=== PATIENT | male | born 1995 | race Caucasian/White ===

== ENCOUNTER 2016-10-27 21:30 | Emergency (ER) | payer OTHER ==
[~2016-10-27] VITALS: Ht 188 cm; Wt 117.9 kg
[2016-10-27 21:43] VITALS: TEMP 36.7; Ht 188 cm; Wt 117.9 kg
--- NOTE | 2016-10-27 22:08 | EMERGENCY ROOM VISIT NOTE ---
ED Visit Note First contact with patient: 21:49 CHIEF COMPLAINT: Numbness and tingling in his right hand HISTORY OF PRESENT ILLNESS: This 20-year-old male who is homeless presents the ER with chief complaint of numbness and tingling in his right hand mainly his fourth and fifth fingers over the past several days. The patient denies any pain in the fingers or any trauma to the area. The patient states sometimes he gets a shock from his hand up to his elbow. The patient denies any neck pain. The patient denies any repetitive use with his right hand. The patient is disabled and does not work. He states he has been staying in the [place]. REVIEW OF SYSTEMS: 6 system review was performed and was negative unless stated otherwise in history of present illness. PMH: The patient is healthy; ADHD, depression SOCIAL HISTORY: Patient is homeless PHYSICAL EXAM: Vital Signs: Were reviewed Reviewed Nurse's notes. GEN.: 20-year -old male appears in no acute distress. MENTAL Status: Alert and oriented 3. The patient's thought processes random. CERVICAL SPINE: No gross bony deformity noted. Nontender to palpation. Full range of motion of the cervical spine without pain or worsening of right hand symptoms. RIGHT HAND/WRIST: No gross bony deformity noted. No erythema or edema noted. The patient is unable to completely extend his fourth and fifth fingers on his own. If you straighten them they will stay in that position. Negative Phalen's negative Tinel's, negative Nicolle's EMERGENCY DEPARTMENT COURSE: The patient was evaluated. I offered to the patient to have the correctional case manager see if they could find him a place to stay. He declined. I discussed with the patient liked that he needs to see his primary care physician at [facility] for further evaluation and possibly EMG. The patient verbalized understanding. The patient was discharged home in stable condition DIAGNOSIS: Numbness and tingling right hand DISCHARGE INSTRUCTIONS & TREATMENT: Avoid popping your elbows on hard surfaces. Refrain from repetitive motion with your right hand until evaluated by your family physician. Call your family physician on Sunday for follow-up appointment and possible referral for EMG. Vital Signs Date Time Temp Pulse Resp B/P (MAP) Pulse Ox O2 Delivery O2 Flow Rate FiO2 10/27/16 21:43 36.7 103 18 142/89 97 Room Air Departure Information Referrals No Doctor, Assigned (PCP) Patient Instructions My [facility]
[2016-10-27 22:16] VITALS: BP 144/94; PULSE 105; O2SAT 99
== END 2016-10-27 22:14 | disposition home or self-care (01) ==
LOC: C.EDB 21:31 → C.EDD 22:14
DX: R20.0 Anesthesia of skin (principal); R20.2 Paresthesia of skin; F90.9 Attention-deficit hyperactivity disorder, unspecified type; F32.9 Major depressive disorder, single episode, unspecified; Z59.0 Homelessness

== ENCOUNTER 2017-03-18 08:17 | Emergency (ER) | payer OTHER ==
[~2017-03-18] VITALS: Ht 185.4 cm; Wt 118.0 kg
[2017-03-18] MEDS ORDERED: ONDANSETRON INJ 2 MG/ML 2 ML VIAL IV STA (08:26)
[2017-03-18] MEDS ORDERED: SODIUM CHLORIDE 0.9% 500ML 500 ML IV STA (08:26)
[2017-03-18 08:49] VITALS: TEMP 37.1; Ht 185.4 cm; Wt 118.0 kg
[2017-03-18 09:18] LABS: BASO % 0.2 %; BASO ABS # 0.03 K/uL (0-0.2); EOS % 0.5 %; EOS ABS # 0.08 K/uL (0-0.5); HEMATOCRIT 51.2 % (42-52); HEMOGLOBIN 18.2 g/dL (14.0-18.0); IG# 0.04 K/uL (0.00-0.02); LYMPH % 6.2 %; LYMPH ABS # 0.96 K/uL (1.2-3.4); MEAN CELL VOLUME 85.5 fL (80-100); MEAN CORPUSCULAR HEMOGLOBIN 30.4 pg (25-34); MEAN CORPUSCULAR HGB CONC 35.5 g/dl (32-36); MEAN PLATELET VOLUME 10.5 fL (7.4-10.4); MONO % 8.6 %; MONO ABS # 1.33 K/uL (0.11-0.59); NEUT % 84.2 %; NEUT ABS # 13.08 K/uL (1.4-6.5); PLATELET COUNT 205 K/uL (130-400); RED CELL DISTRIBUTION WIDTH CV 12.9 % (11.5-14.5); WHITE BLOOD COUNT 15.52 K/uL (4.8-10.8)
[2017-03-18 09:45] LABS: ALBUMIN 3.9 gm/dl (3.4-5.0); CREATININE 1.01 mg/dl (0.60-1.40)
[2017-03-18 09:47] LABS: TOTAL PROTEIN 7.6 gm/dl (6.4-8.2)
[2017-03-18] MEDS ORDERED: ONDA4TAB10 SL (10:24)
--- NOTE | 2017-03-18 10:25 | EMERGENCY ROOM VISIT NOTE ---
History Report prepared by Christ: Mat Mendez Under the Supervision of: Dr. Lucas Canas D.O. First contact with patient: 08:21 Stated Complaint: VOMITING/NAUSEA History of Present Illness The patient is a 21 year old male who presents to the Emergency Room with complaints of nausea that began 12 hours ago. He complains of vomiting, lightheadedness, and diarrhea. He denies any sick contacts. Source of History: patient Onset: 12 hours ago Position: other (global) Associated Symptoms: + nausea, + vomiting, + diarrhea Note: Patient complains of lightheadedness. Review of Systems See HPI for pertinent positives & negatives. A total of 10 systems reviewed and were otherwise negative. Past Medical & Surgical Medical Problems: (1) ADHD Social History Smoking Status: Current Every Day Smoker Housing Status: other (homeless; he lives at [facility]) Current/Historical Medications Scheduled Ondasetron Odt (Zofran Odt), 4 MG SL Q6H Allergies Coded Allergies: No Known Allergies (Unverified , 03/18/17) Physical Exam Vital Signs Date Time Temp Pulse Resp B/P (MAP) Pulse Ox O2 Delivery O2 Flow Rate FiO2 03/18/17 08:49 37.1 117 20 133/78 95 Room Air 03/18/17 08:28 105 Physical Exam CONSTITUTIONAL/VITAL SIGNS: Reviewed / noted above. GENERAL: Non-toxic in appearance. INTEGUMENTARY: Warm, dry, and [place]. HEAD: Normocephalic. EYES: without scleral icterus or trauma. ENT/OROPHARYNX: clear and moist. LYMPHADENOPATHY/NECK: Is supple without lymphadenopathy or meningismus. RESPIRATORY: Lungs clear and equal. CARDIOVASCULAR: Regular rate and rhythm. GI/ABDOMEN: Soft and nontender. No organomegaly or pulsatile mass. No rebound or guarding. Normal bowel sounds. EXTREMITIES: Warm and well perfused. BACK: No CVA tenderness. NEUROLOGICAL: Intact without focal deficits. PSYCHIATRIC: normal affect. MUSCULOSKELETAL: Normally developed with good muscle tone. Medical Decision & Procedures Laboratory Results 03/18/17 08:45 Red Blood Count 5.99, Mean Corpuscular Volume 85.5, Mean Corpuscular Hemoglobin 30.4, Mean Corpuscular Hemoglobin Concent 35.5, Mean Platelet Volume 10.5, Neutrophils (%) (Auto) 84.2, Lymphocytes (%) (Auto) 6.2, Monocytes (%) (Auto) 8.6, Eosinophils (%) (Auto) 0.5, Basophils (%) (Auto) 0.2, Neutrophils # (Auto) 13.08, Lymphocytes # (Auto) 0.96, Monocytes # (Auto) 1.33, Eosinophils # (Auto) 0.08, Basophils # (Auto) 0.03 03/18/17 08:45 Test 03/18/17 08:45 White Blood Count 15.52 K/uL (4.8-10.8) Red Blood Count 5.99 M/uL (4.7-6.1) Hemoglobin 18.2 g/dL (14.0-18.0) Hematocrit 51.2 % (42-52) Mean Corpuscular Volume 85.5 fL (80-100) Mean Corpuscular Hemoglobin 30.4 pg (25-34) Mean Corpuscular Hemoglobin Concent 35.5 g/dl (32-36) Platelet Count 205 K/uL (130-400) Mean Platelet Volume 10.5 fL (7.4-10.4) Neutrophils (%) (Auto) 84.2 % Lymphocytes (%) (Auto) 6.2 % Monocytes (%) (Auto) 8.6 % Eosinophils (%) (Auto) 0.5 % Basophils (%) (Auto) 0.2 % Neutrophils # (Auto) 13.08 K/uL (1.4-6.5) Lymphocytes # (Auto) 0.96 K/uL (1.2-3.4) Monocytes # (Auto) 1.33 K/uL (0.11-0.59) Eosinophils # (Auto) 0.08 K/uL (0-0.5) Basophils # (Auto) 0.03 K/uL (0-0.2) RDW Standard Deviation 40.0 fL (36.4-46.3) RDW Coefficient of Variation 12.9 % (11.5-14.5) Immature Granulocyte % (Auto) 0.3 % Immature Granulocyte # (Auto) 0.04 K/uL (0.00-0.02) Anion Gap 10.0 mmol/L (3-11) Est Creatinine Clear Calc Drug Dose 153.1 ml/min Estimated GFR () 120.9 Estimated GFR (Non- 104.4 BUN/Creatinine Ratio 15.0 (10-20) Calcium Level 9.0 mg/dl (8.5-10.1) Total Bilirubin 0.6 mg/dl (0.2-1) Direct Bilirubin 0.2 mg/dl (0-0.2) Aspartate Amino Transf (AST/SGOT) 21 U/L (15-37) Alanine Aminotransferase (ALT/SGPT) 53 U/L (12-78) Alkaline Phosphatase 43 U/L (45-117) Total Protein 7.6 gm/dl (6.4-8.2) Albumin 3.9 gm/dl (3.4-5.0) Lipase 86 U/L (73-393) Laboratory results as stated above per my review. Medications Administered Medications (Trade) Dose Ordered Sig/Libia Route Start Time Stop Time Status Last Admin Dose Admin Ondansetron HCl (Zofran Inj) 4 mg NOW STAT IV 03/18/17 08:26 03/18/17 08:27 DC 03/18/17 08:50 4 MG Sodium Chloride 500 ml @ 999 mls/hr Q31M STAT IV 03/18/17 08:26 03/18/17 08:56 DC 03/18/17 08:26 999 MLS/HR ED Course 0826: Previous medical records were reviewed. The patient was evaluated in room A4. A complete history and physical examination was performed. 0826: Sodium Chloride 500 ml @ 999 mls/hr IV, Zofran Inj 4 mg IV. 1026: On reevaluation, the patient is doing well. I discussed the results and findings with the patient. He verbalized agreement of the treatment plan. He was discharged home. Medical Decision Differential diagnosis: Etiologies such as gastroenteritis, food borne illness, infections, appendicitis , diverticulitis, inflammatory bowel disease, obstruction, GI bleed, biliary pathology, as well as others were entertained. This is a 21-year-old male who presents to the ED with a chief complaint of nausea, vomiting, loose stools and some lightheadedness this morning. The patient states that his symptoms started a few hours ago. His vital signs are stable. His heart rate was 117. He is in no distress on exam. The heart rate when I saw him was around 100. Abdomen is soft and nontender. Lab work reveals a leukocytosis with a white cell of 15,000. Complete metabolic panel was unremarkable and lipase is negative. The leukocytosis is likely related to the recent vomiting. He did not have any clinical findings to suggest acute intra-abdominal pathology like appendicitis. He is nontender. The patient was treated with IV fluids and IV Zofran. He was felt to be stable for discharge and outpatient follow-up. Medication Reconcilliation Current Medication List: was personally reviewed by me Blood Pressure Screening Patient's blood pressure: Normal blood pressure Blood pressure disposition: Did not require urgent referral Impression Primary Impression: Nausea, vomiting, and diarrhea Scribe Attestation The scribe's documentation has been prepared under my direction and personally reviewed by me in its entirety. I confirm that the note above accurately reflects all work, treatment, procedures, and medical decision making performed by me. Departure Information Dispostion Home / Self-Care Prescriptions Ondasetron Odt (ZOFRAN ODT) 4 Mg Tab 4 MG SL Q6H for Nausea, #15 TAB Prov: Lucas Canas D.O. 03/18/17 Referrals Karina Whitt M.D. (PCP) Additional Instructions Follow-up with your doctor for further care and evaluation in 1-2 days. Return to the emergency department for worsening or new symptoms or any concerns. You have been examined and treated today on an emergency basis only. This is not a substitute for, or an effort to provide, complete comprehensive medical care. It is impossible to recognize and treat all injuries or illnesses in a single emergency department visit. It is therefore important that you follow up closely with your doctor. Call as soon as possible for an appointment. Zofran: Allow one tablet to dissolve under the tongue every 6 hours as needed for nausea or vomiting.
[2017-03-18 10:35] VITALS: BP 136/60; PULSE 92; O2SAT 96
== END 2017-03-18 10:35 | disposition home or self-care (01) ==
LOC: EDBD 08:17 → C.EDA 08:19
DX: R11.2 Nausea with vomiting, unspecified (principal); R19.7 Diarrhea, unspecified; R42 Dizziness and giddiness; F90.9 Attention-deficit hyperactivity disorder, unspecified type; F17.200 Nicotine dependence, unspecified, uncomplicated

== ENCOUNTER 2017-10-12 23:07 | Emergency (ER) | payer OTHER ==
[~2017-10-12] VITALS: Ht 185.4 cm; Wt 131.1 kg
[2017-10-12 23:11] VITALS: TEMP 36.7; Ht 185.4 cm; Wt 131.1 kg
--- NOTE | 2017-10-12 23:23 | EMERGENCY ROOM VISIT NOTE ---
History First contact with patient: 23:12 Chief Complaint: EAR WAX Stated Complaint: EAR WAX History of Present Illness The patient is a 21 year old male who presents to the Emergency Room with complaints of clogged ears. The patient states that his ears occasionally become clogged with wax. He has noticed some decreased hearing in his left ear starting today. He does not use anything at home to try to clean out the wax. He believes that his left ear is primarily clogged but would like both ears to be flushed if possible. He denies any pain. He denies any other complaints. Review of Systems A complete 6 point review of systems was reviewed with the patient with pertinent positives and negatives as per history of present illness. All else were negative. Past Medical/Surgical History Medical Problems: (1) ADHD Social History Smoking Status: Current Every Day Smoker Housing Status: lives with family, other Current/Historical Medications Scheduled Carbamide Peroxide (Otic) (Debrox), 5 DROPS OT BID Physical Exam Vital Signs Date Time Temp Pulse Resp B/P (MAP) Pulse Ox O2 Delivery O2 Flow Rate FiO2 10/13/17 00:12 99 16 160/70 98 Room Air 10/12/17 23:11 36.7 115 18 170/69 98 Room Air Physical Exam VITALS: Vitals are noted on the nurse's note and reviewed by myself. Vital signs stable. GENERAL: This is a 21-year-old male, in no acute distress, nondiaphoretic, well- developed well-nourished. EARS: There is a moderate amount of cerumen buildup in bilateral external canals. Tympanic membranes are not able to be visualized. NEURO: Patient was alert and oriented to person place and time. Medical Decision & Procedures Medical Decision The patient was evaluated as above. His ears were irrigated by nursing with warm water and hydrogen peroxide. The patient tolerated the procedure well. A large amount of wax was removed. He was given a prescription for Debrox drops to use in the future. He verbalized understanding of my assessment and treatment plan and was discharged home in good condition. Medication Reconcilliation Current Medication List: was personally reviewed by me Blood Pressure Screening Patient's blood pressure: Elevated blood pressure Blood pressure disposition: Elevated BP felt to be situational Impression Primary Impression: Excessive cerumen in both ear canals Departure Information Dispostion Home / Self-Care Condition GOOD Prescriptions Carbamide Peroxide (Otic) (DEBROX) 6.5 % Jacqui 5 DROPS OT BID, #15 ML Prov: Karla Schultz .JENNI 10/12/17 Referrals Karina Whitt M.D. (PCP) Patient Instructions My [facility] Additional Instructions You may apply 5 of the drops in each ear twice a day for up to 4 days to help remove the rest of the wax. Follow-up with your primary care provider for further evaluation.
[2017-10-12] MEDS ORDERED: CARB1SOL8 OT (23:58)
[2017-10-13 00:12] VITALS: BP 160/70; PULSE 99; O2SAT 98
== END 2017-10-13 00:15 | disposition home or self-care (01) ==
LOC: C.EDB 23:08 → C.EDA 10-13 00:15
DX: H61.23 Impacted cerumen, bilateral (principal); F90.9 Attention-deficit hyperactivity disorder, unspecified type; F17.210 Nicotine dependence, cigarettes, uncomplicated